=== PATIENT | female | born 1970 | race African-American/Black ===

== ENCOUNTER 2023-05-03 09:11 | Inpatient (IN) | payer OTHER ==
[2023-05-03 09:31] VITALS: BMI 33.4
[2023-05-03] MEDS ORDERED: FUROSEMIDE 40 MG/4 ML INJECTABLE VIAL IVPUSH ONE (10:07)
[2023-05-03] MEDS ORDERED: FUROSEMIDE 40 MG/4 ML INJECTABLE VIAL ONE ×2 (10:55→14:52)
[2023-05-03 11:16] LABS: VENOUS BASE EXCESS 2.9 mmol/L (-2-2); VENOUS O2 SATURATION 43.8 % (70-80); VENOUS PCO2 52.6 mmHg (38-52); VENOUS PH 7.365 (7.310-7.410)
[2023-05-03 11:22] LABS: BASO % 0.5 % (0-2.0); EOS % 1.3 % (0-4.5); HEMATOCRIT 38.4 % (32.4-45.2); HEMOGLOBIN 12.6 GM/dL (10.7-15.3); LYMPH % 22.2 % (8-40); MCH 28.5 pg (25.7-33.7); MCHC 32.8 g/dl (32.0-36.0); MEAN CELL VOLUME 86.8 fl (80-96); MEAN PLT VOLUME 8.6 fl (7.5-11.1); MONO % 12.9 % (3.8-10.2); NEUT % 63.1 % (42.8-82.8); PLATELET COUNT 249 10^3/uL (134-434); RBC 4.42 M/mm3 (3.60-5.2); WHITE BLOOD COUNT 5.4 K/mm3 (4.0-10.0)
[2023-05-03 11:29] LABS: INR 1.17 (0.83-1.09); PROTHROMBIN TIME (PATIENT) 13.6 SEC (9.7-13.0)
[2023-05-03 11:32] LABS: ACTIVATED PTT 31.9 SECONDS (25.2-36.5)
[2023-05-03 11:40] LABS: POTASSIUM 3.7 mmol/L (3.5-5.1)
[2023-05-03 11:42] LABS: ALBUMIN 3.2 g/dl (3.4-5.0); BLOOD UREA NITROGEN 9.1 mg/dL (7-18); CALCIUM 9.4 mg/dL (8.5-10.1); MAGNESIUM 2.2 mg/dL (1.8-2.4)
[2023-05-03 11:45] LABS: CREATININE 0.9 mg/dL (0.55-1.3)
[2023-05-03 11:47] LABS: BILIRUBIN,TOTAL 0.9 mg/dL (0.2-1); TOT PROT 6.4 g/dl (6.4-8.2)
[2023-05-03 11:50] LABS: N-TERMINAL BNP 3496.3 pg/ml (5-125)
[2023-05-03] MEDS ORDERED: metoPROLOL SUCCINATE 25 MG TAB.SR.24H (FP) PO SCH (14:00)
[2023-05-03] MEDS ORDERED: METOPROLOL TARTRATE 25 MG TABLET (FP) ONE (14:06)
[2023-05-03] MEDS: FUROSEMIDE 40 MG/4 ML INJECTABLE VIAL IVPUSH SCH (15:00)
[2023-05-03] MEDS: SACUBITRIL/VALSARTAN 24 MG-26 MG TABLET PO SCH (21:18)
[2023-05-04] MEDS: FUROSEMIDE 40 MG/4 ML INJECTABLE VIAL IVPUSH SCH ×2 (05:49→14:31)
[2023-05-04 07:43] LABS: BASO % 0.7 % (0-2.0); EOS % 2.6 % (0-4.5); HEMATOCRIT 41.1 % (32.4-45.2); HEMOGLOBIN 13.6 GM/dL (10.7-15.3); LYMPH % 33.1 % (8-40); MCH 28.7 pg (25.7-33.7); MCHC 33.1 g/dl (32.0-36.0); MEAN CELL VOLUME 86.7 fl (80-96); MEAN PLT VOLUME 8.7 fl (7.5-11.1); MONO % 13.1 % (3.8-10.2); NEUT % 50.5 % (42.8-82.8); PLATELET COUNT 273 10^3/uL (134-434); POTASSIUM 3.1 mmol/L (3.5-5.1); RBC 4.74 M/mm3 (3.60-5.2); RDW 15.8 % (11.6-15.6)
[2023-05-04 08:10] LABS: BLOOD UREA NITROGEN 8.5 mg/dL (7-18); TOT PROT 6.5 g/dl (6.4-8.2)
[2023-05-04 08:11] LABS: BILIRUBIN,TOTAL 0.8 mg/dL (0.2-1); CALCIUM 9.1 mg/dL (8.5-10.1)
[2023-05-04 08:12] LABS: ALBUMIN 3.2 g/dl (3.4-5.0); CREATININE 0.9 mg/dL (0.55-1.3); MAGNESIUM 1.9 mg/dL (1.8-2.4); PHOSPHOROUS 4.5 mg/dL (2.5-4.9)
[2023-05-04] MEDS ORDERED: POTASSIUM CHLORIDE ORAL LIQUID 20 MEQ/15 ML PO ONE (08:45)
[2023-05-04] MEDS: SPIRONOLACTONE 25 MG TABLET PO SCH (09:29)
[2023-05-04] MEDS: ENOXAPARIN NA (PORCINE) 40 MG/0.4 ML DISP.SYRIN SQ SCH (09:29)
[2023-05-04] MEDS: SACUBITRIL/VALSARTAN 24 MG-26 MG TABLET PO SCH ×2 (09:29→21:22)
[2023-05-04] MEDS ORDERED: metoPROLOL SUCCINATE 25 MG TAB.SR.24H (FP) PO SCH (14:00)
[2023-05-04 15:11] VITALS: RESP 18
[2023-05-05] MEDS: FUROSEMIDE 40 MG/4 ML INJECTABLE VIAL IVPUSH SCH ×2 (05:13→14:34)
[2023-05-05 07:33] LABS: BASO % 1.1 % (0-2.0); EOS % 3.1 % (0-4.5); HEMATOCRIT 43.4 % (32.4-45.2); HEMOGLOBIN 14.2 GM/dL (10.7-15.3); LYMPH % 36.6 % (8-40); MCH 28.6 pg (25.7-33.7); MCHC 32.8 g/dl (32.0-36.0); MEAN CELL VOLUME 87.2 fl (80-96); MEAN PLT VOLUME 8.6 fl (7.5-11.1); MONO % 17.3 % (3.8-10.2); NEUT % 41.9 % (42.8-82.8); PLATELET COUNT 268 10^3/uL (134-434); RBC 4.97 M/mm3 (3.60-5.2); RDW 15.6 % (11.6-15.6); WHITE BLOOD COUNT 5.1 K/mm3 (4.0-10.0)
[2023-05-05 07:47] LABS: POTASSIUM 3.2 mmol/L (3.5-5.1)
[2023-05-05 07:50] LABS: ALBUMIN 3.1 g/dl (3.4-5.0); BLOOD UREA NITROGEN 9.1 mg/dL (7-18); MAGNESIUM 1.9 mg/dL (1.8-2.4)
[2023-05-05 07:53] LABS: CREATININE 0.9 mg/dL (0.55-1.3); PHOSPHOROUS 4.2 mg/dL (2.5-4.9)
[2023-05-05 07:54] LABS: TOT PROT 6.4 g/dl (6.4-8.2)
[2023-05-05 08:26] LABS: BILIRUBIN,TOTAL 0.8 mg/dL (0.2-1)
[2023-05-05] MEDS: SACUBITRIL/VALSARTAN 24 MG-26 MG TABLET PO SCH ×2 (09:24→21:25)
[2023-05-05] MEDS: SPIRONOLACTONE 25 MG TABLET PO SCH (09:24)
[2023-05-05] MEDS: POTASSIUM CHLORIDE TABS 20 MEQ TABLET.ER (FP) PO SCH (09:24)
[2023-05-05] MEDS: ENOXAPARIN NA (PORCINE) 40 MG/0.4 ML DISP.SYRIN SQ SCH (09:24)
[2023-05-06] MEDS: FUROSEMIDE 40 MG/4 ML INJECTABLE VIAL IVPUSH SCH ×2 (06:26→13:10)
[2023-05-06 08:37] LABS: POTASSIUM 3.9 mmol/L (3.5-5.1)
[2023-05-06 08:51] LABS: CALCIUM 9.6 mg/dL (8.5-10.1)
[2023-05-06 08:52] LABS: ALBUMIN 3.2 g/dl (3.4-5.0); BLOOD UREA NITROGEN 9.2 mg/dL (7-18); MAGNESIUM 2.1 mg/dL (1.8-2.4)
[2023-05-06 08:55] LABS: CREATININE 0.9 mg/dL (0.55-1.3); PHOSPHOROUS 4.4 mg/dL (2.5-4.9)
[2023-05-06 08:57] LABS: BILIRUBIN,TOTAL 0.6 mg/dL (0.2-1); TOT PROT 6.6 g/dl (6.4-8.2)
[2023-05-06 09:00] LABS: N-TERMINAL BNP 523.3 pg/ml (5-125)
[2023-05-06] MEDS: POTASSIUM CHLORIDE TABS 20 MEQ TABLET.ER (FP) PO SCH (09:00)
[2023-05-06] MEDS ORDERED: EMPAGLIFLOZIN (JARDIANCE) 10 MG TABLET PO SCH (10:00)
[2023-05-06] MEDS: ENOXAPARIN NA (PORCINE) 40 MG/0.4 ML DISP.SYRIN SQ SCH (10:42)
[2023-05-06] MEDS: SPIRONOLACTONE 25 MG TABLET PO SCH (10:42)
[2023-05-06] MEDS: SACUBITRIL/VALSARTAN 24 MG-26 MG TABLET PO SCH ×2 (10:42→16:58)
[2023-05-06 15:22] VITALS: BP 86/65; PULSE 59; TEMP 98.4
== END 2023-05-06 18:32 | disposition home or self-care (01) | DRG 194 ==
LOC: JER 09:11 → JERBED 14:07 → J4W 17:32 → OBSVTOIN 05-04 09:12
PROVIDERS: ADMIT Internal Medicine; ATTEND Internal Medicine
DX: I11.0 Hypertensive heart disease with heart failure (principal); I50.23 Acute on chronic systolic (congestive) heart failure; I34.0 Nonrheumatic mitral (valve) insufficiency; J81.1 Chronic pulmonary edema; E87.6 Hypokalemia; E87.70 Fluid overload, unspecified
CPT/HCPCS: 0241U-QW; 36415; 71045-TC-FY; 80053; 82803; 83735; 83880; 84100; 84484; 85025; 85610; 85730; 93005; 93010; 93306-TC; 99285-25; G0378